=== PATIENT | male | born 1980 | race American Indian/Alaskan Native ===

== ENCOUNTER 2020-11-10 11:16 | Emergency (ER) | payer MEDICAID, OTHER ==
[~2020-11-10] VITALS: Ht 175.3 cm; Wt 107.0 kg
[2020-11-10 11:32] VITALS: Ht 175.3 cm; Wt 107.0 kg
[2020-11-10] MEDS ORDERED: NAP500 PO (14:04)
[2020-11-10 14:40] VITALS: BP 121/78
== END 2020-11-10 14:40 | disposition home or self-care (01) ==
LOC: ED 11:16
DX: S80.11XA Contusion of right lower leg, initial encounter (principal); W13.2XXA Fall from, out of or through roof, initial encounter; Y93.89 Activity, other specified; Y92.89 Other specified places as the place of occurrence of the external cause; Y99.0 Civilian activity done for income or pay
CPT/HCPCS: J1885